=== PATIENT | male | born 1995 | race Caucasian/White ===

== ENCOUNTER 2019-10-17 07:29 | Emergency (ER) | payer OTHER ==
[~2019-10-17] VITALS: Ht 188 cm; Wt 65.0 kg
--- NOTE | 2019-10-17 07:50 | NUR ---
ABNER. REPORT RECEIVED FROM EMS. +ETOH/HEROIN/AMBIEN LAST NIGHT. PARENTS THOUGHT PT WAS NOT AOX4. PARENTS CALLED [facility]. PT'S AOX4 HERE. DENIES SI/HI. NEURO INTACT. SINUS TACHY RATE 100'S ON HOMICIDE DETECTIVE AT THIS TIME. ALL MONITORS IN PLACE. CALL LIGHT WITHIN REACH. PA AT BEDSIDE TO EVALUATE AT THIS TIME. URINAL AT BEDSIDE.
[2019-10-17 08:09] LABS: BASOPHILS # (AUTO) 0.03 x10^3/uL (0-0.1); BASOPHILS % (AUTO) 0 % (0-1); EOSINOPHILS # (AUTO) 0.13 x10^3/uL (0-0.4); EOSINOPHILS % (AUTO) 2 % (1-7); LYMPHOCYTES # (AUTO) 1.98 x10^3/uL (1-3.4); LYMPHOCYTES % (AUTO) 29 % (22-44); MD NO; MEAN CORPUSCULAR HEMOGLOBIN 31.6 pg (27.5-34.5); MEAN CORPUSCULAR HGB CONC 33.8 g/dL (33.2-36.2); MEAN CORPUSCULAR VOLUME 93.3 fL (81-97); MEAN PLATELET VOLUME 6.9 fL (7.4-10.4); MONOCYTES # (AUTO) 0.44 x10^3/uL (0.2-0.8); MONOCYTES % (AUTO) 7 % (2-9); NEUTROPHILS # (AUTO) 4.18 x10^3/uL (1.8-6.8); NEUTROPHILS % (AUTO) 62 % (42-75); PLATELET COUNT 307 x10^3/uL (130-400); RED BLOOD COUNT 5.27 x10^6/uL (4.38-5.82); RED CELL DISTRIBUTION WIDTH 13.2 % (9.4-14.8)
[2019-10-17 08:21] LABS: ALBUMIN 4.2 g/dL (3.4-5.0); ANION GAP 12 mmol/L (5-15); CALCIUM 8.7 mg/dL (8.5-10.1); CHLORIDE 110 mmol/L (98-107)
[2019-10-17 08:24] LABS: ALANINE AMINOTRANSFERASE 136 U/L (12-78); ALKALINE PHOSPHATASE 91 U/L (45-117); BILIRUBIN,TOTAL 0.7 mg/dL (0.2-1.0); CREATININE 0.71 mg/dL (0.7-1.3); TOTAL PROTEIN 8.1 g/dL (6.4-8.2)
--- NOTE | 2019-10-17 08:42 | NUR ---
PT STATES "I CAN'T PEE NOW." URINAL AT BEDSIDE. PT AWARE.
--- NOTE | 2019-10-17 09:21 | NUR ---
PT IS NOT ABLE TO PROVIDE URINE SAMPLE AND PT STATES"JUST DO CATH." PA NOTIFIED AND OK'D TO DO CATH. PT'S STREIGHT CATH'D USING STERILE TECHNIQUE AT THIS TIME. PT TOLERATED WELL. URINE SAMPLE COLLECTED AND SENT.
[2019-10-17 09:41] LABS: AMPHETAMINE SCREEN, URINE Negative (Negative); BARBITURATE SCREEN, URINE Negative (Negative); BENZODIAZEPINE SCREEN, URINE Negative (Negative); CANNABINOID SCREEN, URINE Negative (Negative); COCAINE SCREEN, URINE Negative (Negative); METHADONE SCREEN, URINE Negative (Negative); OPIATE SCREEN, URINE Negative (Negative)
--- NOTE | 2019-10-17 10:40 | NUR ---
pt sleeping in [facility]. resps even and unlabored. all monitors in place. call light within reach.
--- NOTE | 2019-10-17 11:51 | NUR ---
pt sleeping in [facility]. resps even and unlabored. all monitors in place. call light within reach.
[2019-10-17 12:12] VITALS: BP 123/61
--- NOTE | 2019-10-17 12:13 | NUR ---
BREAK RN: PT ARROUSES TO VERBAL STIM WHEN RN ENTERS ROOM RPTS NO MEMORY OF HOW HE GOT TO HOSPITAL. PT STATES HE WAS DRINKING BEER AND WHISKEY LAST NIGHT, DENIES DRUG USE. "PT STATES HE TOOK ONE IOF HIS DADS AMBIEN BEFORE HE WENT TO BED" DENIES SI/SA. PT GIVEN SPRITE AND WATER. VSS WITH HR ST 110.
--- NOTE | 2019-10-17 12:33 | NUR ---
PT AMB WITH STEADY GAIT. PT DENIES DZY/SI/HI. PT'S MOM AT BEDSIDE. EDMD NOTIFIED.
--- NOTE | 2019-10-17 13:16 | NUR ---
Patient given discharge instructions and they have confirmed that they understand the instructions. Patient ambulatory with steady gait. HOSPITAL SOCKS GIVEN AT SD.
== END 2019-10-17 13:17 | disposition home or self-care (01) ==
LOC: ED 09:55
DX: F10.220 Alcohol dependence with intoxication, uncomplicated (principal); Y90.0 Blood alcohol level of less than 20 mg/100 ml
CPT/HCPCS: 36415; 80053; 80307; 85025; 99283